=== PATIENT | female | born 1970 | race Caucasian/White ===

== ENCOUNTER → 2018-10-07 | Day surgery (SDC) | payer BC ==
[2018-10-05 15:43] LABS: BLOOD UREA NITROGEN 13 mg/dL (7-26); BUN/CREATININE RATIO 20 (6-25); CALCIUM 9.4 mg/dL (8.4-10.2); CARBON DIOXIDE 28 mmol/L (22-29); CHLORIDE 101 mmol/L (98-107); CREATININE, SERUM 0.66 mg/dL (0.57-1.11); EST GLOMERULAR FILTRATION RATE > 60 ML/MIN (60-); GLUCOSE 94 mg/dL (74-118); SODIUM 136 mmol/L (136-145)
[~2018-10-07] MED LIST: BUPIVACAINE 0.5%/EPI 30 ML SDV INJ ONE; CEFAZOLIN SOD 2 GM/D5W 50ML 50 ML IV ONE; DEXAMETHASONE SOD PHOS INJ 4 MG/ML VIAL ONE; FENTANYL CITRATE/PF 100MCG/2 ML INJ ONE; HYDROCHLOROTHIA25 MG PO; HYDROMORPHONE 2MG/ML 2 MG/ML ML ONE; KETOROLAC TROMETHAMINE 30 MG/ML VIAL ONE; LEXAPRO10 MG PO; NAPROXEN250 MG PO; NEXIUM40 MG PO; ONDANSETRON HCL INJ 2MG/ML 2ML 2 MG/ML VIAL ONE; PROPOFOL IV EMULSION 10 MG/ML 20 ML VIAL ONE; PROPRANOLOL HCL80 MG PO; TURMERIC1 GM PO; VIT B12 PO
[2018-10-07 11:45] VITALS: BP 114/74
--- NOTE | 2018-10-09 01:55 | Operative Report ---
DATE OF PROCEDURE: 10/07/2018 SURGEON: Hebert Bauer MD PREOPERATIVE DIAGNOSES: Left knee medial meniscus tear and left knee degenerative joint disease. POSTOPERATIVE DIAGNOSES: Left knee medial meniscus tear and left knee degenerative joint disease. OPERATION/PROCEDURE PERFORMED: The patient underwent left knee examination under anesthesia, left knee arthroscopy, left knee partial medial meniscectomy; left knee chondroplasty of the patella, the trochlea, the medial femoral condyle, the medial tibial plateau, and the lateral tibial plateau. PHOTOGEOLOGIST: STEPHAN Luna. ANESTHESIA: General endotracheal intubation anesthesia. IV FLUIDS: Per Anesthesia records. BRIEF DISCUSSION OF THE PATIENT'S OPERATIVE PROCEDURE: Ms. Hein was taken to the operating room and placed in a supine position on the operating table. Following the induction of general anesthesia as well as endotracheal intubation, the patient's left lower extremity was examined under anesthesia. She was found to have a mild effusion with the knee joint, but otherwise ligamentously stable knee. The patient's lower extremity was prepped and draped in a standard surgical fashion. A 2-port technique was used to provide this patient arthroscopic evaluation of the knee joint. Examination of suprapatellar pouch, medial and lateral gutters found no evidence of loose bodies. There was, however, evidence of chondromalacia of the patella and trochlear surfaces. The scope was advanced in the medial compartment. compartment demonstrated a torn medial meniscus. There was also chondromalacia of the articulating surfaces. A combination of upbiting forceps and a motorized shaver used to dissect the torn portion of the meniscus. Chondroplasties of the medial femoral condyle and medial tibial plateau were performed at this time. Scope was advanced into the intercondylar notch and the anterior cruciate ligaments were identified and found to be intact. The scope was then advanced to lateral compartment and chondromalacia of the lateral tibial plateau was encountered. Chondroplasty of the surface was performed. Scope was then placed in the suprapatellar pouch, and chondroplasties of the patella and trochlea were performed. The knee was insufflated with sterile normal saline. Each of the portal sites were closed using 4-0 nylon sutures. The portal sites as well as the knee itself were injected with 0.5% Marcaine with epinephrine. Sterile dressings were applied. The patient was awakened and taken to the Postanesthesia Care Unit in stable condition. Nazia Mota was the procurement assistant for this case and was necessary for the prepping and draping of the knee as well as closure of the wounds that allowed this case to be successful. MD JOHN Bashir/SOMMER /[id number]
== END | disposition home or self-care (01) ==
LOC: OR 07:35
PROVIDERS: ATTEND Specialist
DX: S83.222A Peripheral tear of medial meniscus, current injury, left knee, initial encounter (principal); M17.12 Unilateral primary osteoarthritis, left knee; M22.42 Chondromalacia patellae, left knee; M70.51 Other bursitis of knee, right knee; G43.909 Migraine, unspecified, not intractable, without status migrainosus; M54.9 Dorsalgia, unspecified; I10 Essential (primary) hypertension; K21.9 Gastro-esophageal reflux disease without esophagitis; N20.0 Calculus of kidney; F32.9 Major depressive disorder, single episode, unspecified; F41.9 Anxiety disorder, unspecified; X58.XXXA Exposure to other specified factors, initial encounter; Z68.37 Body mass index [BMI] 37.0-37.9, adult; Z87.891 Personal history of nicotine dependence
CPT/HCPCS: 29881; 36415; 80048; 93005; J0690; J1100; J1170; J1885; J2405; J2704